=== PATIENT | female | born 1990 | race Caucasian/White ===

== ENCOUNTER 2021-10-04 14:35 | Outpatient (CLI) | payer BC ==
[2021-10-04 14:51] VITALS: BP 129/71; PULSE 85; RESP 18; TEMP 98.1
--- NOTE | 2021-10-05 07:38 | P.MSEPDOC ---
Presenting Problems - Arrival Data Date of Arrival on Unit: 10/04/21 Time of Arrival on Unit: 14:18 Mode of Transport: Ambulatory - Complaint OB-Reason for Admission/Chief Complaint: Pain, Observation/Evaluation Comment: vaginal pain, round ligament pain when standing rates at 8 but is currently not having pain Medical History - Information : 4 Para: 3 Term: 3 : 0 Abortions: Spontaneous or Elective: 0 Number of Living Children: 3 - Gestational Age Gestational Age by MICHAEL (wks/days): 29 Weeks and 2 Days Review of Systems - Review of Systems Constitutional: No problems Breast: No problems ENT: No problems Cardiovascular: No problems Respiratory: No problems Gastrointestinal: No problems Genitourinary: No problems Musculoskeletal: No problems Neurological: No problems Skin: No problems Vital Signs - Temperature Temperature: 98.1 F Temperature Source: Temporal Artery Scan - Pulse Sitting Brachial Pulse Rate: 85 Pulse Assessment Method: Automatic Cuff - Respirations Respiratory Rate: 18 O2 Sat by Pulse Oximetry: 97 - Blood Pressure Right Arm Blood Pressure: 129/71 Blood Pressure Mean: 90 Blood Pressure Source: Automatic Cuff Medical Screen Scoring - Uterine Contractions Frequency From (mins): 0 Frequency To (mins): 0 Intensity: Absent - Assessment - Baby A Baseline FHR: 130 Heart Rate - NICHD Category: Category I (Normal) NST: Reactive Physician Notification - Physician Notified Physician Notified Date: 10/04/21 Physician Notified Time: 14:40 Physician: Jackie Russo Order Received: Yes Maternal Triage Index - Maternal Triage Index Presenting for scheduled procedure w/no complaint: No - Stat/Priority 1 Stat Priority 1: No - Urgent/Priority 2 Urgent Priority 2: No - Prompt/Priority 3 Prompt Priority 3: No - Non-Urgent/Priority 4 Non-Urgent Priority 4: Yes Criteria Met for Priority 4: discomforts of Disposition - Disposition OB Disposition: Discharge to home, Written follow up instructions reviewed Discharge Date: 10/04/21 Discharge Time: 14:46 I agree with the RN Medical Screening Exam: Yes Case reviewed; plan agreed upon as documented in EMR&OBIX.: Yes Diagnosis: RELATED CONDITIONS, UNSPECIFIED, THIRD TRIMESTER
== END 2021-10-04 14:46 | disposition home or self-care (01) ==
LOC: FBPOP 14:35
PROVIDERS: ATTEND Obstetrics & Gynecology
DX: O26.893 Other specified pregnancy related conditions, third trimester (principal); R10.2 Pelvic and perineal pain; Z3A.29 29 weeks gestation of pregnancy
CPT/HCPCS: 59025; 99215

== ENCOUNTER 2021-12-14 06:15 | Inpatient (IN) | payer BC ==
[2021-12-15] MEDS ORDERED: OXYTOCIN 10 UNIT/ML 1 ML VIAL IM PRN (05:50)
[2021-12-15] MEDS ORDERED: LIDOCAINE 0.5% (PF) 5 MG/ML (50 ML SDV) SQ PRN (05:50)
[2021-12-15] MEDS ORDERED: CARBOPROST TROMETHAMINE 250 MCG/ML 1 ML AMP IM PRN (05:50)
[2021-12-15] MEDS ORDERED: AMPICILLIN 2,000 MG in SODIUM CHLORIDE 0.9% 100 ML IVPB STA (05:50)
[2021-12-15] MEDS ORDERED: METHYLERGONOVINE 0.2 MG/ML 1 ML AMP IM PRN (05:50)
[2021-12-15] MEDS ORDERED: TERBUTALINE 1 MG/ML VIAL SQ PRN (05:50)
[2021-12-15] MEDS ORDERED: OXYTOCIN 30 UNITS/500 ML NS 30 UNIT in SALINE 1 500ML.BAG IV SCH ×2 (06:00→16:45)
[2021-12-15] MEDS: LACTATED RINGERS 1,000 ML IV SCH ×3 (06:18→15:48)
[2021-12-15 06:36] LABS: Basophils % (A) 0 %; Eosinophils # (A) 0.1 k/uL (0-0.7); Eosinophils % (A) 2 %; HCT 37.9 % (34.0-46.0); HGB 12.8 gm/dL (11.4-16.0); Lymphocytes # (A) 2.3 k/uL (1.0-4.8); Lymphocytes % (A) 28 %; MCH 33.1 pg (25.0-35.0); MCHC 33.9 g/dL (31.0-37.0); MCV 97.5 fL (80.0-100.0); Mean Platelet Volume 8.4; Monocytes # (A) 0.4 k/uL (0-1.0); Monocytes % (A) 5 %; Neutrophils # (A) 5.1 k/uL (1.3-7.7); Neutrophils % (A) 63 %; Platelet Count 183 k/uL (150-450); RBC 3.88 m/uL (3.80-5.40); RDW 12.7 % (11.5-15.5); WBC 8.2 k/uL (3.8-10.6)
--- NOTE | 2021-12-15 07:47 | P.HPOB ---
History of Present Illness H&P Date: 12/15/21 Chief Complaint: induction of labor 31 year old presents at 39 weeks 3 days presents for induction of labor. Her cervix is 1-2/70/-2. She is aylin irregularly. heart tones 135 with moderate variability and reactive. Review of Systems All systems: negative Constitutional: Denies chills, Denies fever Eyes: denies blurred vision, denies pain Ears, nose, mouth and throat: Denies headache, Denies sore throat Cardiovascular: Denies chest pain, Denies shortness of breath Respiratory: Denies cough Gastrointestinal: Denies abdominal pain, Denies diarrhea, Denies nausea, Denies vomiting Genitourinary: Denies dysuria, Denies hematuria Musculoskeletal: Denies myalgias Integumentary: Denies pruritus, Denies rash Neurological: Denies numbness, Denies weakness Psychiatric: Denies anxiety, Denies depression Endocrine: Denies fatigue, Denies weight change Past Medical History Past Medical History: No Reported History History of Any Multi-Drug Resistant Organisms: None Reported Past Surgical History: No Surgical Hx Reported Past Anesthesia/Blood Transfusion Reactions: No Reported Reaction Past Psychological History: No Psychological Hx Reported Smoking Status: Never smoker Medications and Allergies Home Medications Medication Instructions Recorded Confirmed Type Vit No.179/Iron/Folic 1 each PO DAILY 12/15/21 12/15/21 History [ Tablet] Allergies Allergy/AdvReac Type Severity Reaction Status Date / Time No Known Allergies Allergy Verified 12/15/21 05:49 Exam Osteopathic Statement: *. No significant issues noted on an osteopathic structural exam other than those noted in the History and Physical/Consult. Vital Signs Temp Pulse Resp BP 12/15/21 05:49 97.2 F L 78 16 130/85 Intake and Output 12/14/21 12/15/21 12/15/21 22:59 06:59 14:59 Other: # Voids 1 Weight 95.708 kg Heart: Regular rate and rhythm Lungs: Clear to auscultation bilaterally Abdomen: Soft, nontender Extremities: Negative Homans sign Results Result Diagrams: 12/15/21 06:19 Assessment and Plan (1) Elective induction of labor planned Current Visit: Yes Status: Acute Code(s): SCP4149 - SNOMED Code(s): 936656524 (2) 39 weeks gestation of Current Visit: Yes Status: Acute Code(s): Z3A.39 - 39 WEEKS GESTATION OF SNOMED Code(s): 63381728 Plan: 1. induction of labor with amniotomy and pitocin 2. anticipate normal vaginal delivery
[2021-12-15] MEDS: AMPICILLIN 1,000 MG in SODIUM CHLORIDE 0.9% 50 ML IVPB SCH ×2 (11:32→15:04)
[2021-12-15] MEDS ORDERED: SODIUM CHLORIDE 0.9% 100 ML BAG ONE (13:45)
[2021-12-15] MEDS ORDERED: fentaNYL (PF) 50 MCG/ML 5 ML AMP ONE (13:45)
[2021-12-15] MEDS ORDERED: ROPIVACAINE 5MG/ML 20ML VIAL ONE (13:45)
[2021-12-15] MEDS ORDERED: diphenhydrAMINE 25 MG CAP PO PRN (16:40)
[2021-12-15] MEDS ORDERED: ZOLPIDEM 5 MG TAB PO PRN (16:40)
[2021-12-15] MEDS ORDERED: ACETAMINOPHEN TAB 325 MG TAB PO PRN (16:40)
[2021-12-15] MEDS ORDERED: diphenhydrAMINE 50 MG/ML 1 ML VIAL IVP PRN ×2 (16:40)
[2021-12-15] MEDS ORDERED: LANOLIN CREAM 5 GM TUBE TOPICAL PRN (16:40)
[2021-12-15] MEDS ORDERED: diphenhydrAMINE 50 MG CAP PO PRN (16:40)
[2021-12-15] MEDS ORDERED: BENZOCAINE/MENTHOL SPRAY 1 GM/SPRAY AEROSOL TOPICAL PRN (16:40)
[2021-12-15] MEDS ORDERED: SIMETHICONE 80 MG CHEWABLE PO PRN (16:40)
[2021-12-15] MEDS ORDERED: HYDROCORTISONE 2.5% RECTAL CREAM 30 GM TUBE RECTAL PRN (16:40)
[2021-12-15] MEDS: IBUPROFEN 600 MG TAB PO PRN (16:58)
--- NOTE | 2021-12-15 17:05 | P.PROBDLV ---
Vaginal Delivery Note - . Vaginal Delivery Note: 31 year old presents at 39 weeks 3 days presents for induction of labor. Her cervix is 1-2/70/-2. She is aylin irregularly. heart tones 135 with moderate variability and reactive. Pitocin augmentation was started and amniotomy performed at 7:07 AM, clear fluid noted. When she was uncomfortable she did get an epidural. Her cervix is completely dilated at 1610. She pushed, delivered a viable female over intact perineum under epidural anesthesia at 1626. Head delivered OA, anterior shoulder delivered gentle downward guidance of the posterior shoulder and rest of body. Nose and mouth bulb suctioned cord clamped and cut, placed mother's abdomen. Apgars 8, 9, weight 8 pounds 11.7 ounces. Placenta delivered spontaneously, intact with three-vessel cord at 1629. Vagina, cervix, and perineum were inspected. First- degree right labial laceration was repaired with 3-0 Vicryl. Estimated blood loss 100 mL. Her baby in stable condition.
[2021-12-15] MEDS: SENNOSIDES-DOCUSATE SODIUM 1 EACH TAB PO SCH (20:08)
[2021-12-15] MEDS ORDERED: METHYLERGONOVINE 0.2 MG/ML 1 ML AMP IM ONE (20:18)
[2021-12-15 20:29] VITALS: RESP 16
[2021-12-16] MEDS: IBUPROFEN 600 MG TAB PO PRN ×3 (00:07→15:08)
--- NOTE | 2021-12-16 07:35 | P.DS ---
Providers Date of admission: 12/15/21 05:39 Expected date of discharge: 12/16/21 Attending physician: Heather Belle Primary care physician: Stated None - Discharge Diagnosis(es) (1) Elective induction of labor planned Current Visit: Yes Status: Resolved (2) 39 weeks gestation of Current Visit: Yes Status: Resolved (3) Status post normal vaginal delivery Current Visit: Yes Status: Acute Hospital Course: Patient presented for induction of labor. She underwent normal vaginal delivery. course was complicated by some increased vaginal bleeding. This resolved with one dose of Methergine. Patient feels well this morning. Denies nausea, vomiting, chest pain, shortness of breath or any calf pain. Patient will be discharged home day #1 in stable condition to follow- up with me in 6 weeks. Plan - Discharge Summary New Discharge Prescriptions: New Ibuprofen [Motrin] 600 mg PO Q6HR PRN #30 tab PRN Reason: Mild Pain (Scale 1 To 3) No Action Vit No.179/Iron/Folic [ Tablet] 1 each PO DAILY Discharge Medication List Vit No.179/Iron/Folic [ Tablet] 1 each PO DAILY 12/15/21 [History] Ibuprofen [Motrin] 600 mg PO Q6HR PRN #30 tab 12/16/21 [Rx] Follow up Appointment(s)/Referral(s): Heather Belle DO [Doctor of Osteopathic Medicine] - 01/28/22 3:45 pm Discharge Disposition: HOME SELF-CARE
[2021-12-16 08:12] LABS: Basophils % (A) 0 %; Eosinophils # (A) 0.1 k/uL (0-0.7); Eosinophils % (A) 2 %; HCT 38.7 % (34.0-46.0); HGB 13.1 gm/dL (11.4-16.0); Lymphocytes # (A) 1.8 k/uL (1.0-4.8); Lymphocytes % (A) 20 %; MCH 33.1 pg (25.0-35.0); MCHC 33.9 g/dL (31.0-37.0); MCV 97.5 fL (80.0-100.0); Mean Platelet Volume 8.4; Monocytes # (A) 0.4 k/uL (0-1.0); Monocytes % (A) 4 %; Neutrophils # (A) 6.7 k/uL (1.3-7.7); Neutrophils % (A) 73 %; Platelet Count 176 k/uL (150-450); RBC 3.96 m/uL (3.80-5.40); RDW 12.5 % (11.5-15.5); WBC 9.2 k/uL (3.8-10.6)
[2021-12-16] MEDS: SENNOSIDES-DOCUSATE SODIUM 1 EACH TAB PO SCH (08:18)
[2021-12-16 17:04] VITALS: BP 123/72; PULSE 76; TEMP 98.2
== END 2021-12-16 17:59 | disposition home or self-care (01) | DRG 807 ==
LOC: 4FBP 12-15 05:39
PROVIDERS: ADMIT Obstetrics & Gynecology; ATTEND Obstetrics & Gynecology
PROC: 10E0XZZ Delivery of Products of Conception, External Approach (ICD-10-PCS; principal; 2021-12-15)
PROC: 0HQ9XZZ Repair Perineum Skin, External Approach (ICD-10-PCS; principal; 2021-12-15)
PROC: 00HU33Z Insertion of Infusion Device into Spinal Canal, Percutaneous Approach (ICD-10-PCS; 2021-12-15)
PROC: 3E033VJ Introduction of Other Hormone into Peripheral Vein, Percutaneous Approach (ICD-10-PCS; 2021-12-15)
PROC: 10907ZC Drainage of Amniotic Fluid, Therapeutic from Products of Conception, Via Natural or Artificial Opening (ICD-10-PCS; 2021-12-15)
DX: O70.0 First degree perineal laceration during delivery (principal); Z37.0 Single live birth; Z28.310 Unvaccinated for COVID-19; Z3A.39 39 weeks gestation of pregnancy; Z79.899 Other long term (current) drug therapy
CPT/HCPCS: 85025; 86850; 86900; 86901